=== PATIENT | female | born 1980 | race Native Hawaiian/Other Pacific Islander ===

== ENCOUNTER 2018-03-30 09:18 | Outpatient (CLI) | payer OTHER ==
[2018-03-30 09:33] LABS: PLATELET COUNT 307 K/uL (152-353)
== END 2018-03-30 19:08 | disposition home or self-care (01) ==
LOC: LABW 09:18
PROVIDERS: Student in an Organized Health Care Education/Training Program
DX: A08.8 Other specified intestinal infections (principal)
CPT/HCPCS: 36415; 85027; 86318; 87015; 87045; 87205; 87324; 87328; 87329; 87449; 87899